=== PATIENT | male | born 1955 | race Two or more races ===

== ENCOUNTER 2017-12-12 08:51 | Inpatient (IN) | payer OTHER ==
[~2017-12-12] VITALS: Ht 172.7 cm; Wt 76.2 kg
[~2017-12-12 08:51] MED LIST: ARIP1TAB7 PO; GLIP-115 PO
[2017-12-12 10:05] LABS: Basophils # (auto) 0 uL; Basophils % (auto) 0.2 % (0.0-2.0); Eosinophils # (auto) 0 uL; Hematocrit 31.7 % (41.0-53.0); Hemoglobin 10.6 g/dL (13.5-17.5); Lymphocytes # (auto) 0.3 uL; Lymphocytes % (auto) 3.7 % (10.0-50.0); Mean Corpuscular Hemoglobin 31.5 pg (28.0-32.0); Mean Corpuscular Hgb Conc. 33.3 g/dL (32.0-36.0); Mean Corpuscular Volume 94.7 fL (80.0-100.0); Monocytes # (auto) 0.6 uL; Monocytes % (auto) 7.6 % (0.0-12.0); Neutrophils # (auto) 6.5 uL; Neutrophils % (auto) 88.5 % (37.0-80.0); Platelet Count (auto) 173 10^3/uL (140-450); Red Blood Cells 3.35 10^6/uL (4.5-5.90); Red Cell Distribution Width 14.2 % (11.8-14.3); White Blood Cell 7.4 10^3/uL (4.4-10.8)
[2017-12-12 10:36] LABS: Albumin 2.9 g/dL (3.4-5.0); BUN/Creatinine Ratio 5.9; Bilirubin, Total 0.4 mg/dL (0.2-1.0); Calcium 8.3 mg/dL (8.5-10.1); Magnesium 2.3 mg/dL (1.6-2.6); Potassium 3.7 mmol/L (3.5-5.1); Total Protein 7.2 g/dL (6.4-8.2)
[2017-12-12] MEDS ORDERED: cefTRIAXone 1GM/10ml IVPUSH 10 ML IV ONE (12:30)
[2017-12-12] MEDS ORDERED: HYDROcodone-ACET 5/325MG TAB PO PRN (13:00)
[2017-12-12] MEDS ORDERED: TEMAZEPAM 15 MG CAP PO PRN (13:00)
[2017-12-12] MEDS ORDERED: LACTULOSE 20Gm/30ML SOLN PO PRN (13:00)
[2017-12-12] MEDS ORDERED: MORPHINE SULFATE 4 MG/ML SYR/VIAL IV PRN ×2 (13:00)
[2017-12-12] MEDS ORDERED: ACETAMINOPHEN 500 MG TAB PO PRN (13:00)
[2017-12-12] MEDS ORDERED: NITROGLYCERIN 0.4 MG SL TAB SL PRN (13:00)
[2017-12-12] MEDS ORDERED: LORazepam 0.5 MG TAB PO PRN (13:00)
[2017-12-12] MEDS ORDERED: DEXTROSE (50%) 50ML SYRG IV PRN (13:00)
[2017-12-12] MEDS ORDERED: PROMETHAZINE HCL 25 MG/ML 1ML IV PRN (13:00)
[2017-12-12] MEDS: diphenhdrAMINE HCL 50 MG/1 ML VL IV ONE ×2 (13:17→13:26)
[2017-12-12 13:36] LABS: Urine Amorphous Crystal FEW /hpf (None Seen); Urine Bacteria FEW /hpf (None Seen); Urine Blood 2+ /uL (Negative); Urine Specific Gravity 1.013 (1.001-1.035); Urine WBC 1 /hpf (0 - 3)
[2017-12-12] MEDS: ENOXAPARIN SOD 30 MG/0.3 ML SYRINGE SC SCH (13:47)
[2017-12-12] MEDS: SODIUM CHLOR 0.9% PF (SALINE LOCK) 10ML VIAL IV SCH ×2 (14:15→22:35)
[2017-12-12] MEDS ORDERED: GLIP-116 PO (15:27)
[2017-12-12] MEDS: InsuLIN REG 1unit/0.01ml Soln (100units/ml) SC SCH ×3 (16:00→23:36)
[2017-12-12] MEDS ORDERED: HEPARIN 1,000 UNITS/ml 1ML VIAL IV ONE (17:15)
[2017-12-12] MEDS ORDERED: LOPERAMIDE HCL 2 MG CAP PO ONE (17:30)
[2017-12-12] MEDS ORDERED: EPOETIN ALFA 10,000 UNIT/1 ML VIAL IV ONE (18:00)
[2017-12-12 20:16] VITALS: BP 106/59
[2017-12-12 22:00] VITALS: BP 109/54
[2017-12-13] MEDS: InsuLIN REG 1unit/0.01ml Soln (100units/ml) SC SCH ×2 (03:35→08:00)
[2017-12-13 05:00] VITALS: BP 115/64
[2017-12-13] MEDS: SODIUM CHLOR 0.9% PF (SALINE LOCK) 10ML VIAL IV SCH (05:12)
[2017-12-13 07:17] LABS: Phosphorus 3.7 mg/dL (2.5-4.90); Uric Acid 4.2 mg/dL (3.5-7.2)
[2017-12-13 09:00] VITALS: BP 124/62
[2017-12-13] MEDS: ENOXAPARIN SOD 30 MG/0.3 ML SYRINGE SC SCH (09:03)
[2017-12-13] MEDS ORDERED: PANTOPRAZOLE 40 MG TAB PO SCH (10:00)
[2017-12-13 10:24] VITALS: BP 124/62
== END 2017-12-13 11:00 | disposition home or self-care (01) | DRG 637 ==
LOC: EDBD 08:51 → ER 08:51 → TELE 08:52 → TELE-WESTW 17:18
PROVIDERS: ADMIT Internal Medicine; ATTEND Internal Medicine
PROC: 5A1D70Z Performance of Urinary Filtration, Intermittent, Less than 6 Hours Per Day (ICD-10-PCS; principal; 2017-12-12)
DX: E11.649 Type 2 diabetes mellitus with hypoglycemia without coma (principal); G93.41 Metabolic encephalopathy; I12.0 Hypertensive chronic kidney disease with stage 5 chronic kidney disease or end stage renal disease; E44.0 Moderate protein-calorie malnutrition; E11.22 Type 2 diabetes mellitus with diabetic chronic kidney disease; K72.90 Hepatic failure, unspecified without coma; N18.6 End stage renal disease; F20.9 Schizophrenia, unspecified; G40.909 Epilepsy, unspecified, not intractable, without status epilepticus; D63.1 Anemia in chronic kidney disease; F31.9 Bipolar disorder, unspecified; I25.10 Atherosclerotic heart disease of native coronary artery without angina pectoris; J32.4 Chronic pansinusitis; Z79.84 Long term (current) use of oral hypoglycemic drugs; Z87.891 Personal history of nicotine dependence; Z99.2 Dependence on renal dialysis; Z68.25 Body mass index [BMI] 25.0-25.9, adult
CPT/HCPCS: 36415; 70450; 80053; 81001; 82306; 82550; 82962; 83036; 83735; 83880; 83970; 84100; 84443; 84484; 84550; 85025; 90935; 96374; 96375; J0885; J1815

== ENCOUNTER 2018-03-13 13:06 | Observation (INO) | payer OTHER ==
[~2018-03-13] VITALS: Ht 172.7 cm; Wt 82.6 kg
[~2018-03-13 13:06] MED LIST changes: +CALC200T3 PO; -GLIP-115 PO; +GLIP-116 PO
[2018-03-13 13:08] VITALS: BP 194/84
== END 2018-03-13 16:51 | disposition left against medical advice (07) | DRG 948 ==
LOC: ER 13:06 → OVERFLOW 13:07 → ER 15:31
PROVIDERS: ADMIT Family Medicine; ATTEND Family Medicine
DX: R41.82 Altered mental status, unspecified (principal); S40.812A Abrasion of left upper arm, initial encounter; S40.811A Abrasion of right upper arm, initial encounter; X58.XXXA Exposure to other specified factors, initial encounter; Y93.89 Activity, other specified; Y92.89 Other specified places as the place of occurrence of the external cause; Y99.8 Other external cause status
CPT/HCPCS: 93005; 99281; G0378

== ENCOUNTER 2018-03-13 19:26 | Observation (INO) | payer OTHER ==
[~2018-03-13] VITALS: Ht 172.7 cm; Wt 82.6 kg
[2018-03-13] MEDS ORDERED: LORazepam 2MG/ML-1ML VIAL IV ONE (20:45)
[2018-03-13] MEDS ORDERED: diphenhdrAMINE HCL 50 MG/1 ML VL IV ONE (20:45)
[2018-03-13] MEDS ORDERED: HALOPERIDOL LACTATE 5 MG/ML INJ VIAL IM ONE (20:45)
[2018-03-13] MEDS ORDERED: diphenhdrAMINE HCL 50 MG/1 ML VL ONE (20:47)
[2018-03-13] MEDS ORDERED: HALOPERIDOL LACTATE 5 MG/ML INJ VIAL ONE (20:47)
[2018-03-13] MEDS ORDERED: LORazepam 2MG/ML-1ML VIAL ONE (20:47)
[2018-03-14 05:49] LABS: Alanine Aminotransferase 20 U/L (16-61); Albumin 3.3 g/dL (3.4-5.0); Alkaline Phosphatase 53 U/L (45-117); Anion Gap 13 (5-15); Aspartate Aminotransferase 17 U/L (15-37); BUN/Creatinine Ratio 4.2; Bilirubin, Total 0.7 mg/dL (0.2-1.0); Blood Alcohol < 3.0 mg/dL (0-5); Blood Urea Nitrogen 52 mg/dL (7-18); Calcium 8.8 mg/dL (8.5-10.1); Carbon Dioxide 24 mmol/L (21-32); Chloride 106 mmol/L (98-107); GFR African American 5 mL/min; GFR Non-African American 4 mL/min; Glucose 144 mg/dL (74-106); Magnesium 2.8 mg/dL (1.6-2.6); Potassium 4.5 mmol/L (3.5-5.1); Sodium 143 mmol/L (136-145); Total Protein 6.8 g/dL (6.4-8.2)
[2018-03-14 06:17] VITALS: BP 175/83
[2018-03-14 07:36] LABS: INR 0.96 (0.9-1.15); Partial Thromboplastin Time 20.2 sec (23.78-33.04); Prothrombin Time 10.3 sec (9.27-12.13)
== END 2018-03-14 02:38 | disposition left against medical advice (07) | DRG 884 ==
LOC: EDBD 19:26 → ER 19:27 → OVERFLOW 19:28 → UNDOADMOB 19:28 → ER 03-14 02:38
PROVIDERS: ADMIT Emergency Medicine; ATTEND Emergency Medicine
DX: R45.1 Restlessness and agitation (principal); N18.6 End stage renal disease; I13.2 Hypertensive heart and chronic kidney disease with heart failure and with stage 5 chronic kidney disease, or end stage renal disease; I50.9 Heart failure, unspecified; E11.22 Type 2 diabetes mellitus with diabetic chronic kidney disease; I25.10 Atherosclerotic heart disease of native coronary artery without angina pectoris; Z99.2 Dependence on renal dialysis; Z79.899 Other long term (current) drug therapy
CPT/HCPCS: 36415; 70450; 71045; 80053; 80320; 83735; 84484; 85379; 85610; 85730; 93005; 96372; 96374; 96375; 99285; G0378; J1200; J1630; J2060